=== PATIENT | male | born 1980 | race Asian ===

== ENCOUNTER 2016-09-02 21:25 | Emergency (ER) | payer OTHER ==
[~2016-09-02] VITALS: Ht 167.6 cm; Wt 81.8 kg
[2016-09-02 22:18] VITALS: BP 146/107
[2016-09-02] MEDS ORDERED: KETOROLAC TROMETHAMINE 60 MG/2 ML VIAL IM ONE (22:30)
== END 2016-09-02 22:47 | disposition home or self-care (01) ==
LOC: EMS 21:26
DX: S39.012A Strain of muscle, fascia and tendon of lower back, initial encounter (principal); S16.1XXA Strain of muscle, fascia and tendon at neck level, initial encounter; F17.210 Nicotine dependence, cigarettes, uncomplicated; V43.52XA Car driver injured in collision with other type car in traffic accident, initial encounter; Y93.89 Activity, other specified; Y92.488 Other paved roadways as the place of occurrence of the external cause; Y99.8 Other external cause status
CPT/HCPCS: 96372; 99283; J1885